=== PATIENT | female | born 1995 | race Hispanic/Latino ===

== ENCOUNTER 2017-12-18 19:31 | Emergency (ER) | payer MEDICAID, OTHER ==
[2017-12-18] MEDS ORDERED: DIAZEPAM 5 MG TABLET ONE (19:56)
[2017-12-18] MEDS ORDERED: IBUPROFEN 600 MG TABLET ONE (19:56)
== END 2017-12-18 20:12 | disposition home or self-care (01) ==
LOC: EDH 19:31
DX: M43.6 Torticollis (principal); Z72.0 Tobacco use